=== PATIENT | male | born 1995 | race Caucasian/White ===

== ENCOUNTER 2020-12-11 23:04 | Emergency (ER) | payer BC ==
[~2020-12-11 23:04] MED LIST: AUGMENTIN 875-1 EACH PO; BENTYL 20MG TAB20 MG PO; FLAGYL500 MG PO; FLOMAX0.4 MG PO; IBU800 MG PO; LODINE CAP 300300 MG PO; NORCO 7.5-3251 EACH PO; TORADOL 10 MG T10 MG PO; ZOFRAN ODT 4 MG4 MG PO; ZOFRAN4 MG PO
[2020-12-11] MEDS ORDERED: BENTYL 20MG TAB20 MG PO (23:25)
[2020-12-11] MEDS ORDERED: ZOFRAN ODT 4 MG4 MG SL (23:25)
[2020-12-11] MEDS ORDERED: FLORASTOR250 MG PO (23:25)
== END 2020-12-11 23:55 | disposition home or self-care (01) ==
LOC: ER1 23:04
DX: R11.2 Nausea with vomiting, unspecified (principal); R19.7 Diarrhea, unspecified; F17.200 Nicotine dependence, unspecified, uncomplicated
CPT/HCPCS: 99283

== ENCOUNTER → 2021-02-08 | Outpatient (CLI) | payer OTHER, BC ==
[~2021-02-08] MED LIST changes: +FLORASTOR250 MG PO; +ZOFRAN ODT 4 MG4 MG SL
== END ==
LOC: RAD 16:50
DX: M25.511 Pain in right shoulder (principal)
CPT/HCPCS: 73030

== ENCOUNTER → 2021-08-19 | Outpatient (CLI) | payer OTHER | LOC: KOH-I 08:00 | DX: M25.511 Pain in right shoulder (principal); S42.291A Other displaced fracture of upper end of right humerus, initial encounter for closed fracture; S43.491A Other sprain of right shoulder joint, initial encounter; X58.XXXA Exposure to other specified factors, initial encounter | CPT/HCPCS: 73221 ==

== ENCOUNTER 2022-01-09 14:26 | Emergency (ER) | payer SELFPAY ==
[2022-01-09 15:04] LABS: BORDETELLA PARAPERTUSSIS Not Detected (Not Detectd); BORDETELLA PERTUSSIS Not Detected (Not Detectd); CHLAMYDIA PNEUMONIAE Not Detected (Not Detectd); CORONAVIRUS HKU1 Not Detected (Not Detectd); CORONAVIRUS NL63 Not Detected (Not Detectd); CORONAVIRUS OC43 Not Detected (Not Detectd); CORONOAVIRUS 229E Not Detected (Not Detectd); HUMAN METAPNEUMOVIRUS Not Detected (Not Detectd); HUMAN RHINOVIRUS/ENTEROVIRUS Not Detected (Not Detectd); INFLUENZA A Not Detected (Not Detectd); INFLUENZA B Not Detected (Not Detectd); MYCOPLASMA PNEUMONIAE Not Detected (Not Detectd); PARAINFLUENZA VIRUS 1 Not Detected (Not Detectd); PARAINFLUENZA VIRUS 2 Not Detected (Not Detectd); PARAINFLUENZA VIRUS 3 Not Detected (Not Detectd); PARAINFLUENZA VIRUS 4 Not Detected (Not Detectd); RESPIRATORY SYNCYTIAL VIRUS Not Detected (Not Detectd)
[2022-01-09 16:30] LABS: SARS-CoV-2 DETECTED (Not Detectd)
[2022-01-09] MEDS ORDERED: MEDROL4 MG PO (18:46)
[2022-01-09] MEDS ORDERED: BENZONATATE200 MG PO (18:46)
[2022-01-09] MEDS ORDERED: ZITHROMAX500 MG PO (18:46)
== END 2022-01-09 19:00 | disposition home or self-care (01) ==
LOC: ER1 14:26
PROVIDERS: Preventive Medicine Occupational Medicine
DX: U07.1 COVID-19 (principal); R09.1 Pleurisy; F17.210 Nicotine dependence, cigarettes, uncomplicated
CPT/HCPCS: 71045; 80307; 81001; 82550; 82553; 83690; 84484; 85379; 86140; 87633; 93005; 96374; 96375; 99285; C9113; J1885; Q9967